=== PATIENT | male | born 2000 | race African-American/Black ===

== ENCOUNTER 2020-06-15 16:36 | Emergency (ER) | payer BC, OTHER ==
[2020-06-15] MEDS ORDERED: ONDANSETRON 4 MG TAB.RAPDIS PO ONE (17:39)
[2020-06-15] MEDS ORDERED: IBUPROFEN 800 MG TABLET PO ONE (17:39)
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
[2020-06-15 18:32] VITALS: BP 119/82
[2020-06-15] MEDS ORDERED: DIPH/PERTUSS(ACELL)/TETANUS VAC/PF 0.5 ML SYR (>=10YO) IM ONE (18:32)
== END 2020-06-15 18:50 | disposition home or self-care (01) ==
LOC: ER 16:36
DX: S80.02XA Contusion of left knee, initial encounter (principal); S80.212A Abrasion, left knee, initial encounter; R51 Headache; M25.562 Pain in left knee; M79.662 Pain in left lower leg; M79.10 Myalgia, unspecified site; V86.05XA Driver of 3- or 4- wheeled all-terrain vehicle (ATV) injured in traffic accident, initial encounter; Z23 Encounter for immunization; F17.210 Nicotine dependence, cigarettes, uncomplicated
CPT/HCPCS: 99283; 90471; 73564; 73590; 90715; S0119